=== PATIENT | female | born 1980 | race Two or more races ===

== ENCOUNTER 2019-06-10 17:20 | Emergency (ER) | payer MEDICAID, OTHER ==
[~2019-06-10] VITALS: Ht 167.6 cm; Wt 63.0 kg
[2019-06-10 17:36] VITALS: BP 139/92
== END 2019-06-10 18:17 | disposition home or self-care (01) ==
LOC: ER 17:22
DX: R51 Headache (principal); M54.2 Cervicalgia; M54.6 Pain in thoracic spine; J45.909 Unspecified asthma, uncomplicated; F17.200 Nicotine dependence, unspecified, uncomplicated; V49.59XA Passenger injured in collision with other motor vehicles in traffic accident, initial encounter; Y93.89 Activity, other specified; Y92.413 State road as the place of occurrence of the external cause; Y99.8 Other external cause status